=== PATIENT | female | born 1985 | race Caucasian/White ===

== ENCOUNTER → 2016-06-15 | Outpatient (CLI) | payer BC ==
[~2016-06-15] VITALS: Ht 167.6 cm; Wt 68.0 kg
[~2016-06-15] MED LIST: ENDOCET 5-3251 EACH PO; IBUPROFEN800 MG PO; JUNEL1 EAC1 PO; PRENATAL TABLE1 EAC3 PO; ZOFRAN4 MG PO
[2016-06-15 16:20] VITALS: BP 117/73
== END | disposition home or self-care (01) ==
LOC: IVINF 08:00
DX: O36.0990 Maternal care for other rhesus isoimmunization, unspecified trimester, not applicable or unspecified (principal); Z3A.00 Weeks of gestation of pregnancy not specified
CPT/HCPCS: 96372; J2790

== ENCOUNTER 2016-09-05 06:55 | Inpatient (IN) | payer BC ==
[2016-09-05] VITALS (26 sets, daily range): BP systolic 110–157; BP diastolic 64–96
[~2016-09-05] VITALS: Ht 167.6 cm; Wt 81.0 kg
[2016-09-05 08:21] LABS: EOSINOPHIL (%) 0.2 % (0-5); HEMATOCRIT 31.9 % (36.0-46.0); IMMATURE GRANULOCYTE (%) 1.3 % (0.0-0.7); IMMATURE GRANULOCYTE COUNT 0.1 K/uL; INSTRUMENT ABS NEUTROPHIL CT 7.1 K/uL; LYMPHOCYTE COUNT 1.5 K/uL (1.0-2.8); MCH 28.7 PG (29.0-34.0); MCHC 33.2 G/DL (30.0-36.0); MCV 86.4 FL (83-99); MEAN PLAT.VOLUME 12.4 uM^3 (9.5-12.4); MONOCYTE (%) 7.5 % (3-12); MONOCYTE COUNT 0.7 K/uL (0-0.8); NEUTROPHIL (%) 75.2 % (45-76); NEUTROPHIL COUNT 7.1 K/uL (1.8-6.4); PLATELET COUNT 123 K/uL (156-360); RBC DIS.WIDTH-CV 13.7 % (11.8-14.6); RBC DIS.WIDTH-SD 42.9 % (39-53); RED BLOOD COUNT 3.69 M/uL (3.80-5.20); WHITE BLOOD COUNT 9.4 K/uL (4.1-10.2)
[2016-09-05] MEDS ORDERED: MOTRIN800 MG PO (18:59)
[2016-09-06 07:39] VITALS: BP 122/79
[2016-09-06 16:37] VITALS: BP 129/86
[2016-09-07 07:42] VITALS: BP 117/89
== END 2016-09-07 13:00 | disposition home or self-care (01) | DRG 774 ==
LOC: LDRP-OP 06:55 → 2WEST 06:56 → LDRP-OP 08:56 → 2WEST 18:21 → LDRP-OP 10-07 12:50
PROVIDERS: Obstetrics & Gynecology
PROC: 10E0XZZ Delivery of Products of Conception, External Approach (ICD-10-PCS; principal; 2016-09-05)
PROC: 3E0S3BZ Introduction of Anesthetic Agent into Epidural Space, Percutaneous Approach (ICD-10-PCS; 2016-09-05)
DX: O99.824 Streptococcus B carrier state complicating childbirth (principal); O99.42 Diseases of the circulatory system complicating childbirth; O36.0931 Maternal care for other rhesus isoimmunization, third trimester, fetus 1; D69.6 Thrombocytopenia, unspecified; Z37.0 Single live birth; Z3A.39 39 weeks gestation of pregnancy; O99.12 Other diseases of the blood and blood-forming organs and certain disorders involving the immune mechanism complicating childbirth; Z88.0 Allergy status to penicillin; I49.9 Cardiac arrhythmia, unspecified
CPT/HCPCS: 85025; C1755; J3370; J7120